=== PATIENT | female | born 1955 | race Caucasian/White ===

== ENCOUNTER 2021-01-26 07:14 | Day surgery (SDC) | payer OTHER ==
[2021-01-24 13:47] LABS: COVID AG,FIA SOURCE NASOPHARYNGEAL
[~2021-01-26] VITALS: Ht 157.5 cm; Wt 65.1 kg
[~2021-01-26 07:14] MED LIST: KETOROLAC TROMETHAMINE 0.5% 5 ML OPHTHALMIC SOLUTION ONE; MOXIFLOXACIN HCL 0.5% 3 ML OPHTHALMIC SOLUTION ONE; PHENYLEPHRINE HCL 2.5% 2 ML OPHTHALMIC SOLUTION ONE; RINGERS SOLUTION,LACTATED 500 ML IV ONE; TROPICAMIDE 1% 2 ML OPHTHALMIC SOLUTION ONE
[2021-01-26] MEDS ORDERED: POVIDONE-IODINE 10% 15 ML SOLUTION UD TP ONE (07:15)
[2021-01-26] MEDS ORDERED: HYALURONATE SOD/CHONDROITIN SOD 0.5 ML VIAL IO ONE (07:15)
[2021-01-26] MEDS ORDERED: BALANCED SALT 15 ML OPHTHALMIC IRRIG.SOLN IO ONE (07:15)
[2021-01-26] MEDS ORDERED: LIDOCAINE/PF 1% 2 ML VIAL IM ONE (07:15)
[2021-01-26] MEDS ORDERED: HYALURONATE SODIUM 12 MG/ML 0.8 ML SYRINGE IO ONE (07:15)
[2021-01-26] MEDS ORDERED: FentaNYL CITRATE PF 100 MCG/2 ML VIAL IVP ONE (07:15)
[2021-01-26] MEDS ORDERED: EPINEPHrine 1:1,000 [1 MG/ML] AMP IM ONE (07:15)
[2021-01-26] MEDS ORDERED: TETRACAINE HCL/PF 0.5% 4 ML OPHTHALMIC SOLUTION OU ONE (07:15)
[2021-01-26] MEDS ORDERED: MIDAZOLAM HCL 2 MG/2 ML VIAL IVP ONE (07:15)
[2021-01-26] MEDS ORDERED: RINGERS SOLUTION,LACTATED 500 ML IV ONE (08:00)
[2021-01-26] MEDS: KETOROLAC TROMETHAMINE 0.5% 5 ML OPHTHALMIC SOLUTION OD SCH ×3 (08:02→08:14)
[2021-01-26] MEDS: TROPICAMIDE 1% 2 ML OPHTHALMIC SOLUTION OD SCH ×3 (08:02→08:13)
[2021-01-26] MEDS: PHENYLEPHRINE HCL 2.5% 2 ML OPHTHALMIC SOLUTION OD SCH ×3 (08:02→08:13)
[2021-01-26] MEDS: MOXIFLOXACIN HCL 0.5% 3 ML OPHTHALMIC SOLUTION OD SCH ×3 (08:02→08:14)
[2021-01-26] MEDS ORDERED: ATOR20TA86 PO (08:36)
[2021-01-26] MEDS ORDERED: AMLO-257 PO (08:36)
[2021-01-26] MEDS ORDERED: DIAZ10 PO (08:36)
[2021-01-26] MEDS ORDERED: ASPI-1450 PO (08:36)
[2021-01-26] MEDS ORDERED: FAMO20 PO (08:36)
[2021-01-26] MEDS ORDERED: CHOL100044 PO (08:36)
[2021-01-26] MEDS ORDERED: LEVO125 PO (08:36)
[2021-01-26] MEDS ORDERED: FLUT100B IH (08:36)
== END 2021-01-26 11:25 | disposition home or self-care (01) ==
LOC: SURGERY 07:14
PROVIDERS: ATTEND Ophthalmology
DX: H25.11 Age-related nuclear cataract, right eye (principal); F41.9 Anxiety disorder, unspecified; K21.9 Gastro-esophageal reflux disease without esophagitis; E78.00 Pure hypercholesterolemia, unspecified; H40.1131 Primary open-angle glaucoma, bilateral, mild stage; H35.3132 Nonexudative age-related macular degeneration, bilateral, intermediate dry stage; I10 Essential (primary) hypertension; Z88.6 Allergy status to analgesic agent; Z88.8 Allergy status to other drugs, medicaments and biological substances; Z88.0 Allergy status to penicillin; Z91.040 Latex allergy status; Z72.89 Other problems related to lifestyle; Z98.890 Other specified postprocedural states
CPT/HCPCS: 66984; 66174; 87426; C9803; J0171; J2250; J3010; J3490 ×2; J7120; V2632

== ENCOUNTER 2022-08-02 05:44 | Day surgery (SDC) | payer OTHER, MEDICAID ==
[2022-07-31 10:29] LABS: COVID AG,FIA SOURCE NASAL SWAB
[~2022-08-02] VITALS: Ht 154.9 cm; Wt 70.0 kg
[~2022-08-02 05:44] MED LIST changes: +AMLO-257 PO; +ASPI-1450 PO; +ATOR20TA86 PO; +CHOL25TA4 PO; +DIAZ10 PO; +FAMO20 PO; +FLUT100B IH; -KETOROLAC TROMETHAMINE 0.5% 5 ML OPHTHALMIC SOLUTION ONE; +LEVO125 PO; -MOXIFLOXACIN HCL 0.5% 3 ML OPHTHALMIC SOLUTION ONE; -PHENYLEPHRINE HCL 2.5% 2 ML OPHTHALMIC SOLUTION ONE; -RINGERS SOLUTION,LACTATED 500 ML IV ONE; -TROPICAMIDE 1% 2 ML OPHTHALMIC SOLUTION ONE
[2022-08-02] MEDS ORDERED: BALANCED SALT 15 ML OPHTHALMIC IRRIG.SOLN OD ONE (05:45)
[2022-08-02] MEDS ORDERED: CHONDR SULF A SOD/HYALURONATE 1.05 ML KIT IO ONE (05:45)
[2022-08-02] MEDS ORDERED: MIDAZOLAM HCL 2 MG/2 ML VIAL IVP ONE (05:45)
[2022-08-02] MEDS ORDERED: POVIDONE-IODINE 5% 30 ML OPHTHALMIC SOLUTION OD ONE (05:45)
[2022-08-02] MEDS ORDERED: HYALURONATE SOD 8.5MG/0.85ML 10 MG/ML SYRINGE IO ONE (05:45)
[2022-08-02] MEDS ORDERED: LIDOCAINE/PF 1% 2 ML VIAL IV ONE (05:45)
[2022-08-02] MEDS ORDERED: EPINEPHrine 1:1,000 [1 MG/ML] VIAL IM ONE (05:45)
[2022-08-02] MEDS ORDERED: FentaNYL CITRATE PF 100 MCG/2 ML VIAL IVP ONE (05:45)
[2022-08-02] MEDS ORDERED: RINGERS SOLUTION,LACTATED 500 ML IV ONE (06:00)
[2022-08-02] MEDS ORDERED: PHENYLEPHRINE HCL 2.5% 2 ML OPHTHALMIC SOLUTION ONE (06:15)
[2022-08-02] MEDS ORDERED: MOXIFLOXACIN HCL 0.5% 3 ML OPHTHALMIC SOLUTION ONE (06:15)
[2022-08-02] MEDS ORDERED: TROPICAMIDE 1% 2 ML OPHTHALMIC SOLUTION ONE (06:15)
[2022-08-02] MEDS ORDERED: KETOROLAC TROMETHAMINE 0.5% 5 ML OPHTHALMIC SOLUTION ONE (06:15)
[2022-08-02] MEDS: MOXIFLOXACIN HCL 0.5% 3 ML OPHTHALMIC SOLUTION OS SCH ×3 (06:38→06:51)
[2022-08-02] MEDS: TROPICAMIDE 1% 2 ML OPHTHALMIC SOLUTION OS SCH ×3 (06:38→06:51)
[2022-08-02] MEDS: PHENYLEPHRINE HCL 2.5% 2 ML OPHTHALMIC SOLUTION OS SCH ×3 (06:38→06:51)
[2022-08-02] MEDS: KETOROLAC TROMETHAMINE 0.5% 5 ML OPHTHALMIC SOLUTION OS SCH ×3 (06:38→06:51)
[2022-08-02] MEDS ORDERED: UBID100C63 PO (07:15)
[2022-08-02] MEDS ORDERED: ASPI-1450 PO (07:15)
[2022-08-02] MEDS ORDERED: DIAZ10 PO (07:15)
[2022-08-02] MEDS ORDERED: VIT1CAPS5 PO (07:15)
[2022-08-02] MEDS ORDERED: LINA72CA PO (07:15)
[2022-08-02] MEDS ORDERED: TETRACAINE HCL/PF 0.5% 4 ML OPHTHALMIC SOLUTION OS ONE (16:44)
== END 2022-08-02 09:40 | disposition home or self-care (01) ==
LOC: SURGERY 05:44
PROVIDERS: ATTEND Ophthalmology
DX: H25.12 Age-related nuclear cataract, left eye (principal); H40.10X2 Unspecified open-angle glaucoma, moderate stage; J45.909 Unspecified asthma, uncomplicated; I10 Essential (primary) hypertension; Z79.899 Other long term (current) drug therapy; Z98.890 Other specified postprocedural states; Z87.01 Personal history of pneumonia (recurrent); Z86.73 Personal history of transient ischemic attack (TIA), and cerebral infarction without residual deficits
CPT/HCPCS: 87426; 93005; 66991; C9803; C1783; J0171; J3010; J3490; J2250; Q9967; V2632